=== PATIENT | female | born 1955 | race Hispanic/Latino ===

== ENCOUNTER 2017-09-25 14:39 | Outpatient (CLI) | payer OTHER | END 2017-09-25 14:40 | disposition home or self-care (01) | LOC: BICMAMMO 14:39 | PROVIDERS: ATTEND Family Medicine | DX: Z12.31 Encounter for screening mammogram for malignant neoplasm of breast (principal); R92.1 Mammographic calcification found on diagnostic imaging of breast | CPT/HCPCS: 77067 ==

== ENCOUNTER 2017-10-21 10:04 | Day surgery (SDC) | payer OTHER ==
[2017-10-20 13:53] VITALS: BMI 41.9
--- NOTE | 2017-10-21 02:17 | HP ---
SHORT STAY HISTORY AND PHYSICAL DATE OF ADMISSION: 10/21/2017 HISTORY OF PRESENT ILLNESS: Ms. Martinez is a very pleasant 62-year-old female referred to me for a colonoscopy for colon cancer screening. The patient has no specific GI symptoms. She has no fami ly history of colon cancer. She never had a colonoscopy before. ALLERGIES: FLOXIN. SOCIAL HISTORY: The patient is a former smoker. Does not drink alcohol. MEDICAL ILLNESSES: 1. Hypertension. 2. Hyperlipidemia. 3. Diabetes. 4. Obesity. 5. Status post hysterectomy. 6. Status post cataract surgery. PHYSICAL EXAMINATION: VITAL SIGNS: Pulse is 70, blood pressure 140/80. HEENT: Conjunctivae clear. CARDIOVASCULAR: First and second heart sounds normal. LUNGS: Clear to auscultation. ABDOMEN: Soft to palpate. No organomegaly. No masses. EXTREMITIES: Reveal no edema. ADMITTING DIAGNOSIS: A 62-year-old female undergoing colonoscopy for colon cancer screening.
--- NOTE | 2017-10-21 19:35 | OP ---
DATE OF PROCEDURE: 10/21/2017 SURGEON: Darius Sumner M.D. PREOPERATIVE DIAGNOSIS: A 62-year-old female undergoing colonoscopy for colon cancer. POSTOPERATIVE DIAGNOSES: 1. Mild sigmoid diverticular disease. 2. small hemorrhoids. PROCEDURE IN DETAIL: The patient was placed on her left lateral position and was given sedation by Anesthesia Department. A rectal exam was done before the scope was advanced into the rectum. No lesion felt on rectal exam. A [employer] video colonoscope was introduced into the rectum and advanced all the way into the cecum. The prep was good except over the right colon where she had fecal residue. The appendiceal orifice, ileocecal valve, and cecum, no pathology seen. Withdrawal of the scope in the cecum, ascending colon and hepatic flexure , no pathology seen. The transverse colon, splenic flexure, descending colon, no pathology seen. The sigmoid colon shows mild diverticular disease. The rectum showed hemorrhoids. DISCHARGE PLANNING: Ms. Martinez is a very pleasant 62-year-old female who came for a colonoscopy for cancer screening. She underwent colonoscopy and was found to have sigmoid diverticulosis, hemorrhoids. DISCHARGE RECOMMENDATIONS: 1. High fiber diet. 2. Patient was advised to call me if she does have abdominal pain and hematochezia. 3. Repeat colonoscopy in 10 years. BLAKE
== END 2017-10-21 13:42 | disposition home or self-care (01) ==
LOC: SDC 10:04
PROVIDERS: ATTEND Internal Medicine Gastroenterology
PROC: 0DJD8ZZ Inspection of Lower Intestinal Tract, Via Natural or Artificial Opening Endoscopic (ICD-10-PCS; principal; 2017-10-21)
DX: Z12.11 Encounter for screening for malignant neoplasm of colon (principal); K57.30 Diverticulosis of large intestine without perforation or abscess without bleeding; K64.9 Unspecified hemorrhoids; I10 Essential (primary) hypertension; E78.5 Hyperlipidemia, unspecified; E11.9 Type 2 diabetes mellitus without complications; E66.9 Obesity, unspecified; Z68.41 Body mass index [BMI] 40.0-44.9, adult; Z79.84 Long term (current) use of oral hypoglycemic drugs; Z79.899 Other long term (current) drug therapy; Z88.1 Allergy status to other antibiotic agents; Z87.891 Personal history of nicotine dependence